=== PATIENT | female | born 1980 | race African-American/Black ===

== ENCOUNTER 2016-03-28 09:29 | Emergency (ER) | payer MEDICAID ==
[~2016-03-28] VITALS: Ht 170.2 cm; Wt 68.0 kg
[~2016-03-28 09:29] MED LIST: Z.0.NO CURRENT MEDS
[2016-03-28 09:32] VITALS: BP 113/77; PULSE 114; RESP 20; TEMP 99.1; O2SAT 97
--- NOTE | 2016-03-28 09:37 | PD ---
HPI Chief Complaint: Respiratory Symptoms Time Seen by Provider: 09:36 Travel History International Travel<30 days: No Contact w/Intl Traveler<30days: No Traveled to known affect area: No History of Present Illness HPI 35-year-old female came to the emergency room with history of cough, posttussive chest pain since yesterday. She had a temperature of 99.8 in triage. Her son is here to be seen for the same symptoms. She is otherwise a healthy person. She is not a smoker. No history of long distance travel, surgeries or any procedures recently. She points the pain to the midsternal area with no radiation. Currently she is not coughing she does not have any pain. She is not producing any sputum. She was tachycardic in triage. She is sitting comfortably otherwise. [facility] Past Medical History Narrative Medical List of her past medical history as reviewed from the nursing note. Asthma: No Cerebrovascular Accident: No Coronary Artery Disease: No Diabetes: No ?: Not LMP: FEB 2016 Social History Tobacco Use: No Allergies-Medications (Allergen,Severity, Reaction): Coded Allergies: No Known Allergies (Unverified , 03/27/12) Comments No known drug allergies. Reported Meds & Prescriptions Reported Meds & Active Scripts Active Tamiflu (Oseltamivir Phosphate) 75 Mg Cap 75 Mg PO BID 5 Days Narrative Medication List of her home medications reviewed from the nursing note. Review of Systems Except as stated in HPI: all other systems reviewed are Neg Physical Exam Narrative GENERAL: Awake, alert, no obvious distress SKIN: Warm and dry. HEAD: Atraumatic. Normocephalic. EYES: Pupils equal and round. No scleral icterus. No injection or drainage. ENT: No nasal bleeding or discharge. Mucous membranes pink and moist. NECK: Trachea midline. No JVD. CARDIOVASCULAR: Regular rate and rhythm. Tachycardia. No murmur appreciated. RESPIRATORY: No accessory muscle use. Clear to auscultation. Breath sounds equal bilaterally. GASTROINTESTINAL: Abdomen soft, non-tender, nondistended. Hepatic and splenic margins not palpable. MUSCULOSKELETAL: No obvious deformities. No clubbing. No cyanosis. No edema. NEUROLOGICAL: Awake and alert. No obvious cranial nerve deficits. Motor grossly within normal limits. Normal speech. PSYCHIATRIC: Appropriate mood and affect; insight and judgment normal. Data Data Last Documented VS Vital Signs Date Time Temp Pulse Resp B/P Pulse Ox O2 Delivery O2 Flow Rate FiO2 03/28/16 11:32 99 16 99/59 99 Room Air 03/28/16 09:32 99.1 Orders Electrocardiogram (03/28/16 ) Basic Metabolic Panel (Bmp) (03/28/16 09:48) Ckmb (Isoenzyme) Profile (03/28/16 09:48) Complete Blood Count With Diff (03/28/16 09:48) D-Dimer (03/28/16 09:48) Chest, Single Ap (03/28/16 09:48) Ecg Monitoring (03/28/16 09:48) Bilateral Bp Monitoring (03/28/16 09:48) Iv Access Insert/Monitor (03/28/16 09:48) Oximetry (03/28/16 09:48) Oxygen Administration (03/28/16 09:48) Sodium Chloride 0.9% Flush (Ns Flush) (03/28/16 10:00) Influenzae A/B Antigen (03/28/16 09:48) CKMB (03/28/16 09:55) CKMB% (03/28/16 09:55) Labs Laboratory Tests Test 03/28/16 03/28/16 09:50 09:55 White Blood Count 7.0 TH/MM3 Red Blood Count 4.29 MIL/MM3 Hemoglobin 13.7 GM/DL Hematocrit 39.2 % Mean Corpuscular Volume 91.4 FL Mean Corpuscular Hemoglobin 31.9 PG Mean Corpuscular Hemoglobin 34.9 % Concent Red Cell Distribution Width 13.4 % Platelet Count 275 TH/MM3 Mean Platelet Volume 7.6 FL Neutrophils (%) (Auto) 85.0 % Lymphocytes (%) (Auto) 5.1 % Monocytes (%) (Auto) 7.9 % Eosinophils (%) (Auto) 1.7 % Basophils (%) (Auto) 0.3 % Neutrophils # (Auto) 5.9 TH/MM3 Lymphocytes # (Auto) 0.4 TH/MM3 Monocytes # (Auto) 0.5 TH/MM3 Eosinophils # (Auto) 0.1 TH/MM3 Basophils # (Auto) 0.0 TH/MM3 CBC Comment DIFF FINAL Differential Comment D-Dimer Quantitative (PE/DVT) 0.29 MG/L FEU Sodium Level 137 MEQ/L Potassium Level 3.6 MEQ/L Chloride Level 104 MEQ/L Carbon Dioxide Level 24.9 MEQ/L Anion Gap 8 MEQ/L Blood Urea Nitrogen 8 MG/DL Creatinine 0.91 MG/DL Estimat Glomerular Filtration 85 ML/MIN Rate Random Glucose 85 MG/DL Calcium Level 8.5 MG/DL Total Creatine Kinase 111 U/L Creatine Kinase MB 0.5 NG/ML MDM Medical Decision Making Medical Screen Exam Complete: Yes Emergency Medical Condition: Yes Medical Record Reviewed: Yes Interpretation(s) Twelve-lead EKG was reviewed by me. Normal sinus rhythm, normal axis, tachycardia, nonspecific ST-T wave changes. Heart rate of 112 bpm. Differential Diagnosis Influenza, viral illness, bronchitis, PE Narrative Course 10:56 AM all the blood test and influenza test are within normal limit. Chest x -rays within normal limits. I will discharge her home at this point with the diagnosis of URI, viral illness. Her heart rate has come down to 90s. 11:13 AM patient is still in the department and I was told by the nurse that her child was tested positive for influenza. Given that history I would prefer to go ahead and treat this patient with Tamiflu in spite of her negative test since it could be false negative. I'll give her prescription. Procedures EKG Prior to Arrival: Yes Diagnosis Primary Impression: Viral illness Additional Impressions: Bronchitis Cough Referrals: Primary Care Physician 3 days Additional Instructions: Please return to the ER if the condition worsens or any other new concerns. You can take Tylenol or Motrin for the fever as well as the pain. Drink lots of fluid/warm tea with honey and lemon. Lipitor primary care in couple days. Med/Other Pt SpecificInfo: Prescription(s) given, No Change to Meds Scripts Oseltamivir (Tamiflu)75 Mg Cap75 Mg PO BID 5 Days Ref 0 Prov:Blake Kirk MD 03/28/16 Disposition: 01 DISCHARGE HOME Condition: Stable Blake Kirk MD Mar 28, 2016 09:36
[2016-03-28] MEDS ORDERED: SODIUM CHLORIDE 0.9% FLUSH 5 ML FLUSH IVF PRN (10:00)
[2016-03-28 10:09] LABS: AUTOMATED NEUTROPHIL # 5.9 TH/MM3 (1.8-7.7); BASOPHIL % 0.3 % (0.0-2.0); EOSINOPHIL # 0.1 TH/MM3 (0-0.4); EOSINOPHIL % 1.7 % (0.0-4.0); HEMATOCRIT 39.2 % (35.0-46.0); HEMO FLAGS DIFF FINAL; LYMPH % 5.1 % (9.0-44.0); LYMPHOCYTE # 0.4 TH/MM3 (1.0-4.8); MEAN CELL VOLUME 91.4 FL (80.0-100.0); MEAN CORPUSCULAR HEMOGLOBIN 31.9 PG (27.0-34.0); MEAN CORPUSCULAR HGB CONC 34.9 % (32.0-36.0); MONO % 7.9 % (0.0-8.0); PLATELET COUNT 275 TH/MM3 (150-450); RED BLOOD COUNT 4.29 MIL/MM3 (4.00-5.30); RED CELL DISTRIBUTION WIDTH 13.4 % (11.6-17.2)
--- NOTE | 2016-03-28 10:31 | RADRPT ---
EXAM DATE/TIME: 03/28/2016 10:01 [place] COMPARISON: No previous studies available for comparison. INDICATIONS : Chest pain, congestion, and fever. MEDICAL HISTORY : Asthma. SURGICAL HISTORY : None. ENCOUNTER: Initial ACUITY: 2 days PAIN SCORE: 2/10 LOCATION: Bilateral chest FINDINGS: A single view of the chest demonstrates the lungs to be symmetrically aerated without evidence of mas s, infiltrate or effusion. The cardiomediastinal contours are unremarkable. Osseous structures are intact. CONCLUSION: Normal examination for a patient of this age. Chon Heredia MD on March 28, 2016 at 10:29 Board Certified Radiologist. This report was verified electronically.
[2016-03-28 10:37] LABS: ANION GAP 8 MEQ/L (5-15); BICARBONATE 24.9 MEQ/L (21.0-32.0); BLOOD UREA NITROGEN 8 MG/DL (7-18); CHLORIDE 104 MEQ/L (98-107); GLOMERULAR FILTRATION RATE 85 ML/MIN (>89); POTASSIUM 3.6 MEQ/L (3.5-5.1); SODIUM (NA) 137 MEQ/L (136-145)
[2016-03-28 10:38] VITALS: BP_SYST 110; BP_SYST 115; BP_DIAS 74; BP_DIAS 82; PULSE 103
[2016-03-28 10:45] LABS: CREATINE KINASE 111 U/L (26-192)
[2016-03-28] MEDS ORDERED: OSEL75 PO (11:14)
[2016-03-28 11:28] LABS: CKMB 0.5 NG/ML (0.5-3.6)
[2016-03-28 11:32] VITALS: BP 99/59; PULSE 99; RESP 16; O2SAT 99
--- NOTE | 2016-03-28 12:49 | EKG ---
Date Performed: 03/28/2016 Time Performed: 09:42:48 PTAGE: 35 years EKG: SINUS TACHYCARDIA NONSPECIFIC T-WAVE ABNORMALITY ABNORMAL RHYTHM ECG NO PREVIOUS TRACING DOCTOR: Dion Leon Interpretating Date/Time 03/28/2016 12:48:43
== END 2016-03-28 11:40 | disposition home or self-care (01) ==
LOC: NEPC 09:29
DX: B34.9 Viral infection, unspecified (principal); J40 Bronchitis, not specified as acute or chronic
CPT/HCPCS: 71010; 80048; 82550; 82552; 85025; 85379; 87804; 93005